=== PATIENT | female | born 1985 | race Caucasian/White ===

== ENCOUNTER 2017-01-05 19:17 | Emergency (ER) | payer MEDICAID, OTHER, SELFPAY ==
[~2017-01-05] VITALS: Ht 160 cm; Wt 83.9 kg
[2017-01-05 20:10] LABS: ASPARTATE AMINO TRANSFERASE 9 U/L (15-37); BLOOD UREA NITROGEN 18 mg/dL (7-18)
[2017-01-05] MEDS ORDERED: ONDANSETRON ODT 4 MG PO ONE (21:00)
[2017-01-05] MEDS ORDERED: OXYcodone/APAP 5/325MG TABLET PO ONE ×2 (21:00→23:00)
[2017-01-05] MEDS ORDERED: OXYcodone/APAP 5/325MG TABLET ONE ×2 (21:13→23:16)
[2017-01-05] MEDS ORDERED: ONDANSETRON ODT 4 MG ONE (21:13)
[2017-01-05 21:41] VITALS: BP 124/83
== END 2017-01-05 23:21 | disposition home or self-care (01) ==
LOC: ED 21:39
DX: R10.31 Right lower quadrant pain (principal); R11.2 Nausea with vomiting, unspecified; Z90.49 Acquired absence of other specified parts of digestive tract
CPT/HCPCS: 36415; 74020; 76856; 80053; 81001; 85025; 87086; 99285; Q0162

== ENCOUNTER 2017-08-06 07:56 | Emergency (ER) | payer SELFPAY ==
[~2017-08-06] VITALS: Ht 160 cm; Wt 85.9 kg
[2017-08-06] MEDS ORDERED: HYDROmorphone 1 MG/ML, 1ML IVPush PRN (09:30)
[2017-08-06] MEDS ORDERED: SODIUM CHLORIDE 0.9% 1,000ML IVBOLUS ONE (09:30)
[2017-08-06] MEDS ORDERED: SODIUM CHLORIDE FLUSH 10ML SYR IVF ONE (09:30)
[2017-08-06] MEDS ORDERED: ONDANSETRON 2MG/ML, 2ML IVPush ONE (09:30)
[2017-08-06 09:59] LABS: HEMATOCRIT 45.8 % (34.6-47.8); HEMOGLOBIN 15.6 g/dL (11.7-16.4); WHITE BLOOD COUNT 9.6 x10^3/uL (3.4-10)
[2017-08-06] MEDS ORDERED: HYDROmorphone 1 MG/ML, 1ML IM ONE ×2 (11:30→13:30)
[2017-08-06] MEDS ORDERED: HYDROmorphone 1 MG/ML, 1ML ONE ×2 (11:32→13:51)
[2017-08-06 12:14] LABS: BLOOD UREA NITROGEN 13 mg/dL (7-18)
[2017-08-06] MEDS ORDERED: ONDANSETRON 2MG/ML, 2ML ONE (13:17)
[2017-08-06] MEDS ORDERED: ONDANSETRON ODT 4 MG PO ONE (13:30)
[2017-08-06] MEDS ORDERED: ONDANSETRON ODT 4 MG ONE (13:47)
[2017-08-06 14:54] VITALS: BP 134/90
== END 2017-08-06 15:16 | disposition home or self-care (01) ==
LOC: ED 10:15
DX: R10.84 Generalized abdominal pain (principal)
CPT/HCPCS: 36415; 74176; 80048; 81001; 82040; 85025; 87086; 93005; 96372; 99285; J1170; Q0162

== ENCOUNTER 2017-08-06 20:21 | Inpatient (IN) | payer OTHER ==
[~2017-08-06] VITALS: Ht 160 cm; Wt 90.9 kg
[2017-08-06] MEDS ORDERED: FAMOTIDINE 20 MG/2 ML IVP ONE (21:00)
[2017-08-06] MEDS ORDERED: SODIUM CHLORIDE FLUSH 10ML SYR IVF ONE (21:00)
[2017-08-06] MEDS ORDERED: ONDANSETRON 2MG/ML, 2ML IVPush ONE (21:00)
[2017-08-06] MEDS ORDERED: SODIUM CHLORIDE 0.9% 1,000ML IVBOLUS ONE (21:00)
[2017-08-06] MEDS ORDERED: ONDANSETRON 2MG/ML, 2ML ONE (21:11)
[2017-08-06] MEDS ORDERED: FAMOTIDINE 20 MG/2 ML ONE (21:11)
[2017-08-06] MEDS ORDERED: HALOPERIDOL 5 MG/ML IM ONE (21:30)
[2017-08-06] MEDS ORDERED: HALOPERIDOL 5 MG/ML ONE (21:55)
[2017-08-06] MEDS ORDERED: HYDROmorphone 1 MG/ML, 1ML ONE ×2 (23:05→23:41)
[2017-08-06] MEDS: HYDROmorphone 1 MG/ML, 1ML IVPush PRN ×2 (23:10→23:45)
[2017-08-06 23:20] LABS: BLOOD UREA NITROGEN 20 mg/dL (7-18)
[2017-08-06 23:27] LABS: HEMATOCRIT 46.2 % (34.6-47.8); HEMOGLOBIN 15.8 g/dL (11.7-16.4); WHITE BLOOD COUNT 15.4 x10^3/uL (3.4-10)
[2017-08-06 23:30] LABS: DIFF TOTAL CELLS COUNTED 100 CELL DIFF
[2017-08-06 23:32] LABS: VERIFY COUNTS? YES
[2017-08-06 23:40] LABS: ASPARTATE AMINO TRANSFERASE 28 U/L (15-37)
[2017-08-07] MEDS ORDERED: HYDROmorphone 1 MG/ML, 1ML IVPush PRN (00:30)
[2017-08-07] MEDS ORDERED: HYDROmorphone 1 MG/ML, 1ML ONE (00:32)
[2017-08-07] MEDS ORDERED: BISACODYL 10 MG SUPP PR PRN (01:00)
[2017-08-07] MEDS ORDERED: hydrALAzine 20 MG/ML, 1ML IVPush PRN (01:00)
[2017-08-07] MEDS ORDERED: ACETAMINOPHEN 325 MG TABLET PO PRN (01:00)
[2017-08-07] MEDS: SODIUM CHLORIDE 0.9% 1,000 ML IV SCH ×3 (02:22→23:01)
[2017-08-07] MEDS: HYDROmorphone 2 MG/ML, 1ML IVPush PRN ×8 (02:22→23:56)
[2017-08-07 02:26] VITALS: BP 155/105
[2017-08-07] MEDS: HEPARIN 5,000 UNITS/ML, 1ML SQ SCH ×3 (02:44→16:35)
[2017-08-07] MEDS: ONDANSETRON 2MG/ML, 2ML IVPush PRN ×3 (02:44→16:42)
[2017-08-07 02:54] VITALS: BP 139/84
[2017-08-07 07:19] VITALS: BP 147/103
[2017-08-07] MEDS ORDERED: SODIUM CHLORIDE 0.9% 500 ML IV ONE (08:00)
[2017-08-07] MEDS ORDERED: SODIUM CHLORIDE 0.9% 500 ML IV SCH (08:00)
[2017-08-07 08:05] LABS: HEMATOCRIT 44.4 % (34.6-47.8); HEMOGLOBIN 14.9 g/dL (11.7-16.4); WHITE BLOOD COUNT 18.1 x10^3/uL (3.4-10)
[2017-08-07 08:21] LABS: ASPARTATE AMINO TRANSFERASE 17 U/L (15-37); BLOOD UREA NITROGEN 15 mg/dL (7-18)
[2017-08-07] MEDS ORDERED: SODIUM CHLORIDE 0.9%, 500ML IVBOLUS ONE ×3 (09:30→13:00)
[2017-08-07] MEDS: DIAZEPAM 5 MG/ML, 10ML VIAL IV PRN ×2 (11:48→20:11)
[2017-08-07 13:56] VITALS: BP 105/79
[2017-08-07 17:13] LABS: PATH.CAST-FLAG NOT PRESENT; SPERM-FLAG NOT PRESENT; SRC-FLAG NOT PRESENT; XTAL-FLAG NOT PRESENT; YLC-FLAG NOT PRESENT
[2017-08-07 18:06] LABS: DAU SCREEN DISCLAIMER
[2017-08-07 20:22] VITALS: BP 168/76
[2017-08-08] MEDS: ONDANSETRON 2MG/ML, 2ML IVPush PRN ×4 (00:34→18:25)
[2017-08-08] MEDS: HEPARIN 5,000 UNITS/ML, 1ML SQ SCH ×3 (00:37→16:34)
[2017-08-08] MEDS: HYDROmorphone 2 MG/ML, 1ML IVPush PRN ×7 (03:05→21:29)
[2017-08-08 03:30] VITALS: BP 168/99
[2017-08-08] MEDS: DIAZEPAM 5 MG/ML, 10ML VIAL IV PRN ×2 (04:09→14:29)
[2017-08-08] MEDS: SODIUM CHLORIDE 0.9% 1,000 ML IV SCH ×3 (06:33→22:46)
[2017-08-08 06:47] LABS: HEMATOCRIT 38.9 % (34.6-47.8); HEMOGLOBIN 13.1 g/dL (11.7-16.4); WHITE BLOOD COUNT 13.9 x10^3/uL (3.4-10)
[2017-08-08 08:00] VITALS: BP 153/95
[2017-08-08] MEDS ORDERED: DIPHENHYDRAMINE 50 MG/ML, 1ML IVPush PRN (11:00)
[2017-08-08] MEDS: DIPHENHYDRAMINE 50 MG/ML, 1ML IVPush PRN (17:05)
[2017-08-08 17:28] VITALS: BP 174/128
[2017-08-08 18:30] VITALS: BP 161/92
[2017-08-08 19:06] VITALS: BP 139/87
[2017-08-09] MEDS: ONDANSETRON 2MG/ML, 2ML IVPush PRN ×2 (00:19→06:50)
[2017-08-09 00:32] VITALS: BP 136/93
[2017-08-09] MEDS: HYDROmorphone 2 MG/ML, 1ML IVPush PRN ×6 (00:38→17:08)
[2017-08-09] MEDS: HEPARIN 5,000 UNITS/ML, 1ML SQ SCH ×3 (00:39→17:08)
[2017-08-09] MEDS: DIPHENHYDRAMINE 50 MG/ML, 1ML IVPush PRN ×3 (02:02→17:15)
[2017-08-09] MEDS: SODIUM CHLORIDE 0.9% 1,000 ML IV SCH ×2 (06:50→13:53)
[2017-08-09 07:58] VITALS: BP 153/96
[2017-08-09 12:24] VITALS: BP 155/108
[2017-08-09] MEDS: PANCRELIPASE 24,000 CAPSULE.DR PO SCH ×2 (13:21→17:08)
[2017-08-09] MEDS: DIAZEPAM 5 MG/ML, 10ML VIAL IV PRN (13:25)
[2017-08-09] MEDS ORDERED: BISA10SU65 PR (16:37)
[2017-08-09] MEDS ORDERED: HYDR20VI3 IVPush (16:37)
[2017-08-09] MEDS ORDERED: LIPA1CAP61 PO (16:37)
[2017-08-09] MEDS ORDERED: DIAZ5VIA3 IV (16:37)
[2017-08-09] MEDS ORDERED: HEPA50002 SQ (16:37)
[2017-08-09] MEDS ORDERED: HYDR2VIA2 IVPush (16:37)
[2017-08-09] MEDS ORDERED: DIPH50VI IVPush (16:37)
[2017-08-09] MEDS ORDERED: ACET325T14 PO (16:37)
== END 2017-08-09 19:02 | disposition short-term general hospital (02) | DRG 391 ==
LOC: ED 08-07 00:34 → 4NOR 08-07 01:23
PROVIDERS: ADMIT Hospitalist; ATTEND Hospitalist
DX: R11.2 Nausea with vomiting, unspecified (principal); N17.0 Acute kidney failure with tubular necrosis; K86.1 Other chronic pancreatitis; R17 Unspecified jaundice; E83.42 Hypomagnesemia; E87.1 Hypo-osmolality and hyponatremia; R65.10 Systemic inflammatory response syndrome (SIRS) of non-infectious origin without acute organ dysfunction; E66.9 Obesity, unspecified; E86.0 Dehydration; I10 Essential (primary) hypertension; Z90.710 Acquired absence of both cervix and uterus; Z90.49 Acquired absence of other specified parts of digestive tract; Z88.5 Allergy status to narcotic agent; Z88.0 Allergy status to penicillin; Z88.8 Allergy status to other drugs, medicaments and biological substances; Z91.041 Radiographic dye allergy status
CPT/HCPCS: 36415; 80053; 80061; 80307; 81001; 83690; 83735; 85025; 87040; 87086; 93005; J1170; J2405; G0479; J0360; J1200; J1630; J7030; J7040; S0028

== ENCOUNTER 2017-08-19 03:53 | Emergency (ER) | payer OTHER ==
[~2017-08-19] VITALS: Ht 160 cm; Wt 86.0 kg
[~2017-08-19 03:53] MED LIST: ACET325T14 PO; BISA10SU65 PR; DIAZ5VIA3 IV; DIPH50VI IVPush; HEPA50002 SQ; HYDR20VI3 IVPush; HYDR2VIA2 IVPush; LIPA1CAP61 PO
[2017-08-19] MEDS ORDERED: HYDROmorphone 1 MG/ML, 1ML IM ONE (05:00)
[2017-08-19] MEDS ORDERED: ONDANSETRON ODT 4 MG ONE (05:00)
[2017-08-19] MEDS ORDERED: ONDANSETRON ODT 4 MG PO ONE (05:00)
[2017-08-19] MEDS ORDERED: HYDROmorphone 2 MG/ML, 1ML ONE (05:01)
[2017-08-19] MEDS ORDERED: LIDOCAINE GEL 2%, 5ML ONE (05:05)
[2017-08-19 05:25] LABS: HEMATOCRIT 41.8 % (34.6-47.8); HEMOGLOBIN 14.1 g/dL (11.7-16.4); WHITE BLOOD COUNT 8.6 x10^3/uL (3.4-10)
[2017-08-19 05:29] LABS: BLOOD UREA NITROGEN 9 mg/dL (7-18)
[2017-08-19 05:33] LABS: ASPARTATE AMINO TRANSFERASE 17 U/L (15-37)
[2017-08-19 06:56] VITALS: BP 133/94
== END 2017-08-19 06:59 | disposition home or self-care (01) ==
LOC: ED 06:08
DX: N39.0 Urinary tract infection, site not specified (principal); E66.9 Obesity, unspecified; K86.1 Other chronic pancreatitis
CPT/HCPCS: 36415; 80053; 81001; 83690; 85025; 87086; 96372; 99284; J1170; Q0162

== ENCOUNTER 2018-02-06 12:37 | Emergency (ER) | payer OTHER ==
[~2018-02-06] VITALS: Ht 152.4 cm; Wt 90.8 kg
[2018-02-06 14:27] LABS: MICROSCOPIC NOT IND
[2018-02-06] MEDS ORDERED: ONDANSETRON ODT 4 MG ONE (14:29)
[2018-02-06] MEDS ORDERED: SODIUM CHLORIDE 0.9% 1,000ML IVBOLUS ONE (14:30)
[2018-02-06] MEDS ORDERED: SODIUM CHLORIDE FLUSH 10ML SYR IVF ONE (14:30)
[2018-02-06] MEDS ORDERED: ONDANSETRON ODT 4 MG PO ONE (14:30)
[2018-02-06] MEDS ORDERED: FAMOTIDINE 20 MG/2 ML IVP ONE (14:30)
[2018-02-06 14:32] LABS: CULTURE INDICATED? NO
[2018-02-06 14:47] LABS: BASOPHILS # (AUTO) 0.03 x10^3/uL (0-0.1); BASOPHILS % (AUTO) 0 % (0-1); EOSINOPHILS # (AUTO) 0.33 x10^3/uL (0-0.4); EOSINOPHILS % (AUTO) 4 % (1-7); LYMPHOCYTES # (AUTO) 1.95 x10^3/uL (1-3.4); LYMPHOCYTES % (AUTO) 21 % (22-44); MD NO; MEAN CORPUSCULAR HEMOGLOBIN 27.9 pg (27.0-34.8); MEAN CORPUSCULAR HGB CONC 32.7 g/dL (32.4-35.8); MEAN CORPUSCULAR VOLUME 85.3 fL (80-100); MEAN PLATELET VOLUME 8.6 fL (7.4-10.4); MONOCYTES # (AUTO) 0.33 x10^3/uL (0.2-0.8); MONOCYTES % (AUTO) 4 % (2-9); NEUTROPHILS # (AUTO) 6.54 x10^3/uL (1.8-6.8); NEUTROPHILS % (AUTO) 71 % (42-75); PLATELET COUNT 370 x10^3/uL (130-400); RED BLOOD COUNT 5.07 x10^6/uL (3.82-5.3); RED CELL DISTRIBUTION WIDTH 14.8 % (9.6-15.2)
[2018-02-06 14:56] LABS: ALANINE AMINOTRANSFERASE 20 U/L (12-78); ALBUMIN 3.9 g/dL (3.4-5.0); ANION GAP 8 mmol/L (5-15); CHLORIDE 109 mmol/L (98-107)
[2018-02-06 14:59] LABS: ALKALINE PHOSPHATASE 101 U/L (45-117); BILIRUBIN,TOTAL 0.3 mg/dL (0.2-1.0); TOTAL PROTEIN 8.4 g/dL (6.4-8.2)
[2018-02-06] MEDS ORDERED: ZIPRASIDONE 20 MG INJ IM ONE ×2 (15:24→15:30)
[2018-02-06] MEDS ORDERED: HYDROcodone/APAP 7.5-325MG/15ML UDC PO ONE (16:30)
[2018-02-06] MEDS ORDERED: HYDROcodone/APAP 7.5-325MG/15ML UDC ONE (16:32)
[2018-02-06 17:40] VITALS: BP 127/83
== END 2018-02-06 17:42 | disposition home or self-care (01) ==
LOC: ED 15:35
DX: K29.00 Acute gastritis without bleeding (principal); Z90.49 Acquired absence of other specified parts of digestive tract
CPT/HCPCS: 36415; 74021; 74176; 80053; 81003; 83690; 85025; 96372; 99285; J3486; Q0162

== ENCOUNTER 2018-03-31 06:02 | Emergency (ER) | payer OTHER ==
[~2018-03-31] VITALS: Ht 157.5 cm; Wt 90.0 kg
[2018-03-31] MEDS ORDERED: SODIUM CHLORIDE FLUSH 10ML SYR IVF ONE (06:30)
[2018-03-31 06:31] LABS: BASOPHILS # (AUTO) 0.05 x10^3/uL (0-0.1); BASOPHILS % (AUTO) 1 % (0-1); EOSINOPHILS # (AUTO) 0.35 x10^3/uL (0-0.4); EOSINOPHILS % (AUTO) 4 % (1-7); LYMPHOCYTES # (AUTO) 1.84 x10^3/uL (1-3.4); LYMPHOCYTES % (AUTO) 21 % (22-44); MD NO; MEAN CORPUSCULAR HEMOGLOBIN 28.5 pg (27.0-34.8); MEAN CORPUSCULAR HGB CONC 34.1 g/dL (32.4-35.8); MEAN CORPUSCULAR VOLUME 83.8 fL (80-100); MEAN PLATELET VOLUME 8.6 fL (7.4-10.4); MONOCYTES # (AUTO) 0.36 x10^3/uL (0.2-0.8); MONOCYTES % (AUTO) 4 % (2-9); NEUTROPHILS # (AUTO) 6.05 x10^3/uL (1.8-6.8); NEUTROPHILS % (AUTO) 70 % (42-75); PLATELET COUNT 377 x10^3/uL (130-400); RED BLOOD COUNT 4.77 x10^6/uL (3.82-5.3)
[2018-03-31 06:43] LABS: ALANINE AMINOTRANSFERASE 25 U/L (12-78); ALBUMIN 3.5 g/dL (3.4-5.0); ANION GAP 9 mmol/L (5-15); CALCIUM 8.2 mg/dL (8.5-10.1); CHLORIDE 110 mmol/L (98-107)
[2018-03-31 06:45] LABS: ALKALINE PHOSPHATASE 98 U/L (45-117); BILIRUBIN,TOTAL 0.2 mg/dL (0.2-1.0); TOTAL PROTEIN 7.7 g/dL (6.4-8.2)
[2018-03-31 06:53] LABS: MICROSCOPIC NOT IND
[2018-03-31 06:59] LABS: CULTURE INDICATED? NO
[2018-03-31] MEDS ORDERED: MAALOX/HYOSCYAMINE/LIDOCAINE 45 ML BTL ONE (07:10)
[2018-03-31 07:28] VITALS: BP 176/86
[2018-03-31] MEDS ORDERED: MAALOX/HYOSCYAMINE/LIDOCAINE 45 ML BTL PO ONE (07:30)
== END 2018-03-31 07:32 | disposition home or self-care (01) ==
LOC: ED 06:35
DX: R10.13 Epigastric pain (principal); E66.9 Obesity, unspecified
CPT/HCPCS: 36415; 80053; 81003; 83690; 85025; 93005; 99285